=== PATIENT | male | born 1965 | race Native Hawaiian/Other Pacific Islander ===

== ENCOUNTER → 2020-01-06 13:44 | Outpatient (BNVA) | payer MEDICARE, MEDICAID, SELFPAY | PROVIDERS: PCP Hospitalist; Referring Provider Hospitalist; Visit Provider Physician Assistant | DX: S72.002D Fracture of unspecified part of neck of left femur, subsequent encounter for closed fracture with routine healing (principal) | CPT/HCPCS: 99212 ==

== ENCOUNTER 2020-01-28 13:23 | Outpatient (REF) | payer OTHER, MEDICARE, SELFPAY ==
--- NOTE | 2020-01-28 13:31 | MM_ITS ---
EXAMINATION: BONE DENSITOMETRY CLINICAL INDICATION: Recent hip fracture. COMPARISON: None (current study represents initial baseline exam). TECHNIQUE: Using a [employer] DXA System (software version: 13.1) manufactured by [employer], dual-energy x-ray absorptiometry was performed of the lumbar spine and right hip. The images are of good technical quality. Summary results are attached. FINDINGS: AP SPINE L1-L4: BMD 1.092 g/cm2, Z-score -1.3, T-score -1.1, osteopenia. RIGHT FEMUR, NECK: BMD 0.774 g/cm2, Z-score -1.8, T-score -2.3, osteopenia. RIGHT FEMUR, TOTAL: BMD 0.929 g/cm2, Z-score -1.1, T-score -1.2, osteopenia. IDENTIFIED RISK FACTORS: History of fracture (adult). HISTORY OF FRACTURE: Hip, trauma, 2020. MEDICATIONS: Calcium supplements or multivitamin, vitamin D. MM/XR DEXA axial skeleton IMPRESSION: 1. DIAGNOSIS: Osteopenia based on the lowest T-score value of -2.3 in the femoral neck applying World Health Organization criteria. 2. 10-YEAR FRACTURE RISK PREDICTION, FRAX: Major osteoporotic fracture (clinical spine, forearm, hip or shoulder) 6.2%. Hip fracture 1.2%. 3. Treatment Recommendations: NOF guidelines recommend consideration for treatment in postmenopausal women and men age 50 and older presenting with the following: -A hip or vertebral (clinical or morphometric) fracture. -T-score less than or equal to -2.5 at the femoral neck or spine after appropriate evaluation to exclude secondary causes. -Low bone mass at the hip or spine and a 10-year fracture probability by FRAX of greater than or equal to 3% for hip fracture or greater than or equal to 20% for major osteoporotic fracture based on the [place] adapted WHO algorithm. 4. Other Recommendations: All treatment decisions require clinical judgment and consideration of individual patient factors, including patient preferences, comorbidities, previous drug use, risk factors not captured in the FRAX model (e.g. frailty, falls, vitamin D deficiency, increased bone turnover, interval significant decline in bone density) and possible under or overestimation of fracture risk by FRAX. Additional medical evaluation for secondary cause of low bone mineral density may be appropriate. FUTURE SCAN RECOMMENDATION: People with diagnosed cases of osteoporosis or at high risk for fracture should have regular bone mineral density tests. For patients eligible for Medicare, routine testing is allowed once every 2 years. The testing frequency can be increased to one year for patients who have rapidly progressing disease, those who are receiving or discontinuing medical therapy to restore bone mass, or have additional risk factors.
== END 2020-01-28 13:24 | disposition home or self-care (01) ==
LOC: HO.MAMMO 13:23
PROVIDERS: PCP Hospitalist; Visit Provider Hospitalist
DX: Z13.820 Encounter for screening for osteoporosis (principal); Z87.81 Personal history of (healed) traumatic fracture; Z79.899 Other long term (current) drug therapy
CPT/HCPCS: 77080

== ENCOUNTER → 2020-05-18 09:39 | Outpatient (BNVA) | payer OTHER, MEDICAID, MEDICARE, SELFPAY | PROVIDERS: PCP Hospitalist; Visit Provider Urology | DX: N40.1 Benign prostatic hyperplasia with lower urinary tract symptoms (principal); N13.8 Other obstructive and reflux uropathy; R39.12 Poor urinary stream | CPT/HCPCS: 99202 ==

== ENCOUNTER 2020-06-05 07:31 | Emergency (ER) | payer MEDICARE, MEDICAID, SELFPAY ==
[2020-06-05 07:34] VITALS: BP 104/63; BP 80/40; PULSE 50; RESP 17; TEMP 36.6; O2SAT 98; O2SAT 99; BMI 25.1
--- NOTE | 2020-06-05 08:01 | ECG_ITS ---
Test Reason : SYNCOPE Blood Pressure : / mmHG Vent. Rate : 050 BPM Atrial Rate : 050 BPM P-R Int : 164 ms QRS Dur : 080 ms QT Int : 442 ms P-R-T Axes : 035 035 029 degrees QTc Int : 402 ms Sinus bradycardia Otherwise normal ECG When compared with ECG of 20-DEC-2019 07:47, No significant change was found Referred By: Kennedi Courtney Electronically Signed By:Desmond Sifuentes
--- NOTE | 2020-06-05 08:03 | ED.SYNCOPE ---
HPI - Syncope General Chief Complaint: Syncope Stated Complaint: syncope, from [facility] Time Seen by Provider: 06/05/20 07:37 Source: EMS Mode of arrival: EMS Limitations: other History of Present Illness HPI narrative: Patient comes to the emergency room by EMS. Earlier this morning, staff from [facility] found the patient sitting in the toilet, seems that he had a syncopal episode while trying to have a bowel movement. The staff reports that there was not a fall, they report that the patient is at his baseline mental status which is nonverbal, nods and answers simple questions. Patient denies headache, no chest pain, no shortness of breath, no abdominal pain, no pain in extremities, hips. Related Data Home Medications Medication Instructions Recorded Confirmed bisacodyl 10 mg FL DAILY 12/23/19 12/23/19 bisacodyl 10 mg FL DAILY PRN 12/23/19 12/23/19 calcium carbonate [Tums E-X] 500 mg PO Q6H PRN 12/23/19 12/23/19 cetirizine 10 mg PO DAILY 12/23/19 12/23/19 cholecalciferol (vitamin D3) 125 mcg PO DAILY 12/23/19 12/23/19 levothyroxine 50 mcg PO DAILY 12/23/19 12/23/19 melatonin 3 mg PO BEDTIME 12/23/19 12/23/19 multivitamin 1 cap PO DAILY 12/23/19 12/23/19 pantoprazole 40 mg PO DAILY@0630 12/23/19 12/23/19 polyethylene glycol 3350 [Miralax] 17 g PO DAILY PRN 12/23/19 12/23/19 sennosides [senna] 8.6 mg PO BEDTIME 12/23/19 12/23/19 sertraline 50 mg PO DAILY 12/23/19 12/23/19 simethicone 80 mg PO Q6H PRN 12/23/19 12/23/19 tamsulosin 0.4 mg PO DAILY@1730 12/23/19 12/23/19 acetaminophen 325 mg capsule 325 mg PO QID PRN 01/06/20 calcium carbonate 500 mg calcium 500 mg PO DAILY 01/06/20 (1,250 mg) chewable tablet cetirizine 10 mg tablet 10 mg PO DAILY 01/06/20 oxycodone 5 mg capsule 5 mg PO BID PRN 01/06/20 Previous Rx's Medication Instructions Recorded finasteride 5 mg tablet 5 mg PO DAILY 90 Days #90 tab 05/18/20 terazosin 5 mg capsule 5 mg PO BEDTIME 90 Days #90 cap 05/18/20 Allergies Allergy/AdvReac Type Severity Reaction Status Date / Time mirtazapine [MIRTAZAPINE] Allergy Unknown UNKNOWN Verified 05/18/20 10:04 Penicillins [PENICILLINS] Allergy Unknown UNKNOWN Verified 05/18/20 10:04 Review of Systems Review of Systems: Constitutional : No fever, no chills ENT/Mouth : No Hearing loss, No Ear Pain, No Nasal Congestion, No Sinus Pain, No Hoarseness, No sore throat, No Rhinorrhea, No Swallowing Difficulty Eyes: No Eye Pain, No Swelling, No Red no palpitations Respiratory : No Cough, No Sputum, No Wheezing, No Smoke Exposure, No Dyspnea Gastrointestinal : No Nausea, No Vomiting, No Diarrhea, No Constipation, No abdominal Pain, No Hematochezia, No Melena Genitourinary : No dysuria Musculoskeletal : No joint pain, No Joint Swelling Skin : No Skin Lesions, No rash Neuro : No Weakness, No Numbness, No Paresthesias, per staff patient may had had a near syncopal versus syncopal episode Psych : No Anxiety/Panic, No Depression, Heme/Lymph: No Bruising, No Bleeding,No Lymphadenopathy Endocrine : No Polyuria, No Polydipsia, No Temperature Intolerance PMFSH Past Medical History 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 No acute distress. Eyes: Pupils equal, round and reactive to light. ENT: Pharynx normal. Neck: Normal inspection. Neck supple. No lymph nodes noted. No crepitus CVS: Normal heart rate and rhythm. Pulses normal. Normal S1 and S2 Respiratory: No respiratory distress. Breath sounds normal. No Wheezing. No rales Abdomen: Soft and nontender. No rigidity. No distention. Skin: Skin warm and dry. Normal skin color. No lacerations, no abrasions Extremities: No lower extremity edema. No Lacerations. No Rash Neuro: Cranial nerves 2-12 grossly intact Course Course Course Narrative: Patient has remained asymptomatic, knots that he feels well, denies any chest pain. Patient's orthostatics negative (unable to stand), troponin negative, EKG shows bradycardia but patient is not on any beta blockers. Patient likely had a vasovagal near-syncope/syncopal episode while he was straining in the bathroom. MDM - Syncope Lab Data Result diagrams: 06/05/20 08:54 06/05/20 08:54 Labs: Lab Results 06/05/20 06/05/20 06/05/20 Range/Units 08:54 08:54 08:54 WBC 7.7 (4.8-10.8) X10*3/uL RBC 4.95 (4.60-5.80) X10*6/uL Hgb 13.4 L (14.0-18.0) g/dl Hct 40.9 L (42-52) % MCV 82.6 (80-98) fL MCH 27.1 (27.0-33.0) pg MCHC 32.8 (31.0-36.0) g/dl RDW 12.9 (11.0-16.0) % Plt Count 196 (160-400) X10*3/uL MPV 9.8 (9.4-12.4) fL Immature Gran % (Auto) 0.3 (0.0-0.4) % Neut % (Auto) 76.1 H (45-73) % Lymph % (Auto) 16.0 L (20-40) % Bee % (Auto) 4.8 (2-11) % Eos % (Auto) 1.9 (0-4) % Baso % (Auto) 0.9 (0-2) % Lymph # (Auto) 1.2 (1.2-4.9) X10*3/uL Bee # (Auto) 0.4 (0.1-1.2) X10*3/uL Eos # (Auto) 0.2 (0.0-0.4) X10*3/uL Baso # (Auto) 0.1 (0.0-0.2) X10*3/uL Abs Immat Gran (auto) 0.02 (0.00-0.03) X10*3/uL Absolute Neuts (auto) 5.9 (2.0-8.3) X10*3/uL Absolute Nucleated RBC 0.000 (0.0-0.012) X10*3/uL Nucleated RBC % (auto) 0.0 (0.0-0.2) /100WBC Sodium 142 (135-145) mmol/L Potassium 3.9 (3.3-5.1) mmol/L Chloride 108 (96-108) mmol/L Carbon Dioxide 27 (22-29) mmol/L Anion Gap 11 L (12-20) BUN 17 H (9-16) mg/dL Creatinine 0.93 (0.5-1.4) mg/dL Estim Creat Clear Calc 87.8 Estimated GFR > 60 Random Glucose 97 (60-115) mg/dL Calcium 8.3 L (8.4-10.2) mg/dL Total Bilirubin 0.6 (0.0-1.0) mg/dL Direct Bilirubin 0.2 (0.0-0.5) mg/dL AST 15 (5-37) U/L ALT 17 (0-40) U/L Alkaline Phosphatase 59 (39-117) U/L Troponin I High Sens < 3.5 (<3.5-35.0) ng/L Total Protein 6.3 L (6.5-8.0) g/dL Albumin 3.9 (3.5-5.0) g/dL ECG Data Attestation: I personally reviewed and interpreted this ECG as follows: (Sinus rhythm, heart rate 50, QTC 402, no ST segment depression or elevations, no T-wave inversions) Discharge Plan Discharge Clinical Impression: Vasovagal syncope Patient Disposition: Xfer [facility] Transfer Details: [facility] Instructions: Syncope (ED) Additional Instructions: Please follow-up with your primary care physician tomorrow. If you have any worsening or new symptoms, please return to the emergency room or call 911 Prescriptions: No Action sennosides [senna] 8.6 mg Tablet 8.6 mg PO BEDTIME RF: 0 polyethylene glycol 3350 [Miralax] 17 gram Powder In Packet 17 g PO DAILY PRN (Reason: Constipation) RF: 0 cetirizine 10 mg Tablet 10 mg PO DAILY RF: 0 calcium carbonate [Tums E-X] 300 mg (750 mg) Tablet,Chewable 500 mg PO Q6H PRN (Reason: GI UPSET) RF: 0 tamsulosin 0.4 mg capsule 0.4 mg PO DAILY@1730 RF: 0 levothyroxine 50 mcg tablet 50 mcg PO DAILY RF: 0 bisacodyl 10 mg Suppository 10 mg FL DAILY RF: 0 bisacodyl 10 mg Suppository 10 mg FL DAILY PRN (Reason: Constipation) RF: 0 pantoprazole 40 mg tablet,delayed release (DR/EC) 40 mg PO DAILY@0630 RF: 0 multivitamin Capsule 1 cap PO DAILY RF: 0 sertraline 50 mg tablet 50 mg PO DAILY RF: 0 simethicone 80 mg Tablet,Chewable 80 mg PO Q6H PRN (Reason: Constipation) RF: 0 cholecalciferol (vitamin D3) 25 mcg (1,000 unit) Tablet 125 mcg PO DAILY RF: 0 melatonin 3 mg Capsule 3 mg PO BEDTIME RF: 0 acetaminophen 325 mg capsule 325 mg PO QID PRNRF: 0 cetirizine 10 mg tablet 10 mg PO DAILY RF: 0 oxycodone 5 mg capsule 5 mg PO BID PRNRF: 0 calcium carbonate 500 mg calcium (1,250 mg) tablet,chewable 500 mg PO DAILY RF: 0 terazosin 5 mg capsule 5 mg PO BEDTIME 90 Days Qty: 90 RF: 3 finasteride 5 mg tablet 5 mg PO DAILY 90 Days Qty: 90 RF: 1
[2020-06-05 08:59] LABS: MANUAL DIFF FLAG NO
[2020-06-05 09:02] LABS: Basophils Absolute Auto 0.1 X10*3/uL (0.0-0.2); Basophils Percent Auto 0.9 % (0-2); Eosinophils Absolute Auto 0.2 X10*3/uL (0.0-0.4); Eosinophils Percent Auto 1.9 % (0-4); Hematocrit 40.9 % (42-52); Hemoglobin 13.4 g/dl (14.0-18.0); Imm Gran Abs Auto 0.02 X10*3/uL (0.00-0.03); Imm Gran Pct Auto 0.3 % (0.0-0.4); Lymphocytes Absolute Auto 1.2 X10*3/uL (1.2-4.9); Mean Corpuscular HGB Conc 32.8 g/dl (31.0-36.0); Mean Corpuscular Hemoglobin 27.1 pg (27.0-33.0); Mean Corpuscular Volume 82.6 fL (80-98); Mean Platelet Volume 9.8 fL (9.4-12.4); Monocytes Absolute Auto 0.4 X10*3/uL (0.1-1.2); Monocytes Percent Auto 4.8 % (2-11); Neutrophils Absolute Auto 5.9 X10*3/uL (2.0-8.3); Neutrophils Percent Auto 76.1 % (45-73); Platelet Count 196 X10*3/uL (160-400); Red Blood Count 4.95 X10*6/uL (4.60-5.80); Red Cell Distribution Width 12.9 % (11.0-16.0); White Blood Count 7.7 X10*3/uL (4.8-10.8)
[2020-06-05 09:26] LABS: Alanine Aminotransferase 17 U/L (0-40); Albumin Level 3.9 g/dL (3.5-5.0); Alkaline Phosphatase 59 U/L (39-117); Anion Gap 11 (12-20); Aspartate Amino Transferase 15 U/L (5-37); Bilirubin Direct 0.2 mg/dL (0.0-0.5); Bilirubin Total 0.6 mg/dL (0.0-1.0); Blood Urea Nitrogen 17 mg/dL (9-16); Calcium 8.3 mg/dL (8.4-10.2); Carbon Dioxide 27 mmol/L (22-29); Chloride 108 mmol/L (96-108); Creatinine Clr Calc Pharmacy 87.8; Estimated Glomerular Filt Rate > 60; Glucose Random 97 mg/dL (60-115); Potassium 3.9 mmol/L (3.3-5.1); Sodium 142 mmol/L (135-145); Total Protein 6.3 g/dL (6.5-8.0)
[2020-06-05 09:29] LABS: Troponin-I High Sensitivity < 3.5 ng/L (<3.5-35.0)
[2020-06-05 09:53] VITALS: BP 121/61; PULSE 62
[2020-06-05 09:54] VITALS: BP 118/59; PULSE 67
== END 2020-06-05 11:50 | disposition skilled nursing facility (03) ==
PROVIDERS: Emergency Provider Emergency Medicine; PCP Hospitalist
DX: R55 Syncope and collapse (principal); Z86.16 Personal history of COVID-19; Z79.899 Other long term (current) drug therapy
CPT/HCPCS: 36415; 80048; 80076; 84484; 85025; 93005; 99283

== ENCOUNTER 2020-11-18 13:44 | Emergency (ER) | payer MEDICARE, MEDICAID, SELFPAY ==
--- NOTE | ~2020-11-18 | CT_ITS ---
EXAMINATION: CT HEAD WITHOUT CONTRAST CLINICAL INFORMATION: Altered mental status. COMPARISON: CT had noncontrast 12/20/2019 TECHNIQUE: Contiguous axial imaging was performed from the skull base to vertex without intravenous administration of contrast. Additional 2-D coronal and sagittal reformatted images are generated on the CT workstation and uploaded to PACS. Images are repeated due to motion. This CT examination was performed using dose optimization techniques as appropriate, variously including the following: *Automated exposure control *Adjustment of mA and/or kV according to patient size (this includes techniques or standardized protocols for targeted exams where dose is matched to indication/reason for exam; i.e. extremities or head) *Use of iterative reconstruction technique DLP: 1069 mGy-cm FINDINGS: There is no intracranial hemorrhage, hematoma, or extra-axial fluid collection. The ventricles are normal in size. There is no hydrocephalus, edema, or mass effect. There are atrophic changes with prominence of the cortical sulci and fissures and cisterns again seen. There is mild fullness of the ventricles as before. No subependymoma resorption. Gliosis adjacent to the frontal horns and occipital regions is stable. The martinez-white matter differentiation is similar to prior exam. There is no visible acute territorial infarct or mass lesion. The calvarium appears intact. There is no pneumocephalus or orbital emphysema. The visualized sinuses and middle ears and mastoid air cells show no significant mucosal thickening. There are no air-fluid levels. There is probable small osteoma inferior lateral left mastoid, similar to prior exam. CT/CT head/brain wo con IMPRESSION: No acute intracranial abnormality.
--- NOTE | ~2020-11-18 | CT_ITS ---
EXAMINATION: CT ABDOMEN AND PELVIS WITHOUT CONTRAST CLINICAL INFORMATION: Abdominal pain COMPARISON: None TECHNIQUE: Multidetector volumetric imaging was performed from the superior aspect of the liver through the pubic symphysis. Sagittal and coronal reformatted images were obtained on the technologist's workstation. This CT examination was performed using dose optimization techniques as appropriate, variously including the following: *Automated exposure control *Adjustment of mA and/or kV according to patient size (this includes techniques or standardized protocols for targeted exams where dose is matched to indication/reason for exam; i.e. extremities or head) *Use of iterative reconstruction technique DLP: 742 mGy-cm FINDINGS: There is motion artifact present about the abdomen and pelvis. LUNG BASES: The visualized lung bases are unremarkable. There is a small anterior right-sided pericardial effusion. No pleural effusion. LIVER, GALLBLADDER, AND BILIARY TREE: The liver is normal in size, shape, and attenuation. No focal hepatic lesion or biliary ductal dilatation is present. The gallbladder is unremarkable with no evidence of radiopaque gallstones, gallbladder wall thickening, or obvious pericholecystic inflammatory changes. PANCREAS: Unremarkable. SPLEEN: Unremarkable. ADRENAL GLANDS: Unremarkable. KIDNEYS AND URETERS: The kidneys are normal in size, shape, and attenuation. No hydronephrosis, hydroureter, or renal calculi seen. No perinephric stranding. There is some linear calcification seen about the right posterior wall of the urinary bladder but without secondary signs of obstructive uropathy and likely not in the ureter. BLADDER: The bladder is decompressed. Bladder wall thickening is seen which may be related to its collapsed state however with the calcifications appear to lie in the bladder wall is may be related to some chronic process and possibly related to calculi within a small diverticulum. The calcifications are in the vicinity of the ureterovesical junction. GASTROINTESTINAL TRACT: No dilated loops of large or small bowel are evident. No free intra-abdominal air is seen. No pneumatosis intestinalis. There is trace free fluid seen within the pelvis. There is a lack of intra-abdominal fat pelvis with multiple loops of stool-filled bowel making it difficult differentiating loops of bowel however no definite pericolonic inflammatory change is identified and no suspicious abscess fluid collection is seen. The appendix is not identified. ABDOMINAL WALL: No significant hernia is appreciated. LYMPH NODES: No lymphadenopathy appreciated. VASCULAR: No abdominal aortic aneurysm identified. PELVIC VISCERA: No definite abnormal mass can be out from the seminal vessels, colon, prostate gland, and bladder. OSSEOUS STRUCTURES: There is osteopenia visualized bones. Status post right hip compression screw placement. There are bilateral L5 pars defects present. There is grade 1 spondylolisthesis L5-S1. There is loss of the disc spaces at the L4-5 and L5-S1 levels. There is some irregularity about the superior endplate of L5. CT/CT abdomen pelvis wo con IMPRESSION: No evidence of ileus or obstruction. Small pericardial effusion. No definite obstructive uropathy. Calcification about the right side of the urinary bladder with thick walled urinary bladder. Appendix not identified. Osteopenia with bilateral L5 pars defects and grade 1 spondylolisthesis L5-S1. Disc space narrowing L4-5 and L5-S1.
--- NOTE | ~2020-11-18 | XR_ITS ---
EXAMINATION: XR CHEST CLINICAL INFORMATION: Weakness COMPARISON: None TECHNIQUE: Portable upright AP view of the chest was obtained. FINDINGS: Patient is rotated to the right. The lungs are clear. The vascularity is normal. There is no airspace consolidation or groundglass opacity. No pneumothorax or pleural reaction or effusion. The heart is normal in size. The vascularity is normal. No visible acute bony abnormality. XR/XR chest 1V IMPRESSION: Unremarkable examination.
--- NOTE | 2020-11-18 13:47 | ED.AMS ---
HPI - Altered Mental Status General Chief Complaint: General Medical Stated Complaint: increased ams Time Seen by Provider: 11/18/20 13:49 Source: EMS and old records reviewed Mode of arrival: EMS Limitations: altered mental status History of Present Illness MD complaint: altered mental status, decreased responsiveness and other (poor PO intake, possible abdominal pain) Onset (ago): week(s) (1) Timing confirmed by: caregiver Severity: moderate Consistency of symptoms: getting Worse Associated symptoms: loss of appetite and malaise Related Data Home Medications Medication Instructions Recorded Confirmed bisacodyl 10 mg rectal suppository 10 mg NV DAILY 12/23/19 11/18/20 cetirizine 10 mg tablet 10 mg PO DAILY 12/23/19 11/18/20 cholecalciferol (vitamin D3) 25 125 mcg PO DAILY 12/23/19 11/18/20 mcg (1,000 unit) tablet pantoprazole 40 mg tablet,delayed 40 mg PO DAILY@0630 12/23/19 11/18/20 release sennosides 8.6 mg tablet (senna) 8.6 mg PO BEDTIME PRN 12/23/19 11/18/20 sertraline 50 mg tablet 50 mg PO DAILY 12/23/19 11/18/20 simethicone 80 mg chewable tablet 80 mg PO Q6H PRN 12/23/19 11/18/20 acetaminophen 325 mg capsule 650 mg PO Q6H PRN 01/06/20 11/18/20 calcium carbonate 500 mg calcium 500 mg PO DAILY 01/06/20 11/18/20 (1,250 mg) chewable tablet alendronate 70 mg tablet 70 mg PO WILLIAMSON 11/18/20 11/18/20 calcium carbonate 600 mg calcium 600 mg PO DAILY 11/18/20 11/18/20 (1,500 mg) tablet ibuprofen 600 mg tablet 600 mg PO TID 11/18/20 11/18/20 ibuprofen 800 mg tablet 800 mg PO Q8H PRN 11/18/20 11/18/20 lactulose 10 gram/15 mL oral 15 ml PO DAILY 11/18/20 11/18/20 solution levothyroxine 25 mcg tablet 25 mcg PO DAILY 11/18/20 11/18/20 multivitamin with minerals 1 tab PO DAILY 11/18/20 11/18/20 potassium chloride 10 mEq 20 meq PO DAILY 11/18/20 11/18/20 tablet,extended release Previous Rx's Medication Instructions Recorded finasteride 5 mg tablet 5 mg PO DAILY 90 Days #90 tab 05/18/20 terazosin 5 mg capsule 5 mg PO BEDTIME 90 Days #90 cap 05/18/20 Allergies Allergy/AdvReac Type Severity Reaction Status Date / Time mirtazapine [MIRTAZAPINE] Allergy Unknown UNKNOWN Verified 05/18/20 10:04 Penicillins [PENICILLINS] Allergy Unknown UNKNOWN Verified 05/18/20 10:04 Review of Systems Review of Systems: ROS unable to be obtained due to altered mental status [facility] Past Medical History Attestation statement: The following information was validated with the patient. 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 Hypothyroid Mild cognitive impairment, so stated Mood disorder due to known physiological condition with depressive features Muscle weakness (generalized) Osteoarthritis Other lack of coordination Unsteadiness on feet Social History Social History (Updated 11/18/20 @ 14:03 by Apoorva Garcia DO) Patient Tobacco Use Status: Tobacco use Unknown Advance Directives: Yes Advance Directives on File: Yes Advance Directives Date on File: 11/18/20 Physical Exam Vital Signs: Vital Signs: Last Vital Signs Temp 98.5 F 11/18/20 16:32 Pulse 84 11/18/20 16:32 Resp 20 11/18/20 16:32 BP 110/87 11/18/20 16:32 Pulse Ox 99 11/18/20 16:32 Body Mass Index 23.1 Appearance: Somnolent, mild acute distress Eyes: Pupils equal, round and reactive to light. ENT: Pharynx moderately dry Neck: Normal inspection. Neck supple. CVS: Normal heart rate and rhythm. Pulses normal. Respiratory: No respiratory distress. Breath sounds normal. Abdomen: Soft grimaces to palpation Skin: Skin warm and dry. Normal skin color. poor skin turgor. Extremities: No lower extremity edema. Neuro: Cannot participate in exam, pulling limbs away during exam Course Course Course Narrative: overall no acute findings on CT scan, he is FTT and dehydration but negative CT head/cxr/abd for infection no UTI hydrated given thick walled bladder IV rocephin can follow up with urology MDM - Altered Mental Status MDM Narrative Medical decision making narrative: 55 yo male from SNF undifferentiated AMS for 1 week with poor PO intake - at this time labs, IVF, CT scan abdomen to look for infection/obstruction, UA, CXR for pneumonia, CT head for ICH - dispo per results and findings. Lab Data Result diagrams: 11/18/20 14:26 11/18/20 14:26 Labs: Lab Results 11/18/20 11/18/20 11/18/20 Range/Units 14:25 14:26 14:26 WBC 5.6 (4.8-10.8) X10*3/uL RBC 4.85 (4.60-5.80) X10*6/uL Hgb 13.1 L (14.0-18.0) g/dl Hct 38.7 L (42-52) % MCV 79.8 L (80-98) fL MCH 27.0 (27.0-33.0) pg MCHC 33.9 (31.0-36.0) g/dl RDW 12.9 (11.0-16.0) % Plt Count 220 (160-400) X10*3/uL MPV 10.2 (9.4-12.4) fL Immature Gran % (Auto) 0.4 (0.0-0.4) % Neut % (Auto) 62.6 (45-73) % Lymph % (Auto) 25.2 (20-40) % Robertson % (Auto) 6.3 (2-11) % Eos % (Auto) 4.6 H (0-4) % Baso % (Auto) 0.9 (0-2) % Lymph # (Auto) 1.4 (1.2-4.9) X10*3/uL Robertson # (Auto) 0.4 (0.1-1.2) X10*3/uL Eos # (Auto) 0.3 (0.0-0.4) X10*3/uL Baso # (Auto) 0.1 (0.0-0.2) X10*3/uL Abs Immat Gran (auto) 0.02 (0.00-0.03) X10*3/uL Absolute Neuts (auto) 3.5 (2.0-8.3) X10*3/uL Absolute Nucleated RBC 0.000 (0.0-0.012) X10*3/uL Nucleated RBC % (auto) 0.0 (0.0-0.2) /100WBC Sodium 143 (135-145) mmol/L Potassium 3.1 L D (3.3-5.1) mmol/L Chloride 107 (96-108) mmol/L Carbon Dioxide 23 (22-29) mmol/L Anion Gap 16 (12-20) BUN 18 H (9-16) mg/dL Creatinine 0.90 (0.5-1.4) mg/dL Estim Creat Clear Calc 90.7 Estimated GFR > 60 Random Glucose 86 (60-115) mg/dL Lactic Acid 1.0 (0.5-2.0) mmol/L Calcium 8.8 D (8.4-10.2) mg/dL Magnesium 2.0 (1.6-2.6) mg/dL Total Bilirubin 1.1 H (0.0-1.0) mg/dL Direct Bilirubin 0.4 (0.0-0.5) mg/dL AST 20 (5-37) U/L ALT 15 (0-40) U/L Alkaline Phosphatase 53 (39-117) U/L Troponin I High Sens (<3.5-35.0) ng/L Total Protein 6.4 L (6.5-8.0) g/dL Albumin 4.0 (3.5-5.0) g/dL Lipase 20 (8-78) U/L Urine Color Urine Appearance Urine pH (5.0-8.0) Ur Specific [place] (1.005-1.025) Urine Protein (NEG-TRACE) MG/DL Urine Glucose (UA) (NEG) MG/DL Urine Ketones (NEG) MG/DL Urine Blood (NEG) Urine Nitrite (NEG) Ur Leukocyte Esterase (NEG) Urine RBC (0) /HPF Urine WBC (0-4) /HPF Ur Squamous Epith Cells /LPF Tyrosine Crystals /LPF Amorphous Sediment /LPF Urine Bacteria /LPF Other Casts /LPF Urine Mucus /LPF COVID-19 (KEITH) (Negative) COVID-19 Clin Com 11/18/20 11/18/20 11/18/20 Range/Units 14:26 14:26 14:44 WBC (4.8-10.8) X10*3/uL RBC (4.60-5.80) X10*6/uL Hgb (14.0-18.0) g/dl Hct (42-52) % MCV (80-98) fL MCH (27.0-33.0) pg MCHC (31.0-36.0) g/dl RDW (11.0-16.0) % Plt Count (160-400) X10*3/uL MPV (9.4-12.4) fL Immature Gran % (Auto) (0.0-0.4) % Neut % (Auto) (45-73) % Lymph % (Auto) (20-40) % Robertson % (Auto) (2-11) % Eos % (Auto) (0-4) % Baso % (Auto) (0-2) % Lymph # (Auto) (1.2-4.9) X10*3/uL Robertson # (Auto) (0.1-1.2) X10*3/uL Eos # (Auto) (0.0-0.4) X10*3/uL Baso # (Auto) (0.0-0.2) X10*3/uL Abs Immat Gran (auto) (0.00-0.03) X10*3/uL Absolute Neuts (auto) (2.0-8.3) X10*3/uL Absolute Nucleated RBC (0.0-0.012) X10*3/uL Nucleated RBC % (auto) (0.0-0.2) /100WBC Sodium (135-145) mmol/L Potassium (3.3-5.1) mmol/L Chloride (96-108) mmol/L Carbon Dioxide (22-29) mmol/L Anion Gap (12-20) BUN (9-16) mg/dL Creatinine (0.5-1.4) mg/dL Estim Creat Clear Calc Estimated GFR Random Glucose (60-115) mg/dL Lactic Acid (0.5-2.0) mmol/L Calcium (8.4-10.2) mg/dL Magnesium (1.6-2.6) mg/dL Total Bilirubin (0.0-1.0) mg/dL Direct Bilirubin (0.0-0.5) mg/dL AST (5-37) U/L ALT (0-40) U/L Alkaline Phosphatase (39-117) U/L Troponin I High Sens 4.2 (<3.5-35.0) ng/L Total Protein (6.5-8.0) g/dL Albumin (3.5-5.0) g/dL Lipase (8-78) U/L Urine Color YELLOW Urine Appearance CLEAR Urine pH 6.0 (5.0-8.0) Ur Specific [place] >= 1.030 H (1.005-1.025) Urine Protein 1+ H (NEG-TRACE) MG/DL Urine Glucose (UA) NEG (NEG) MG/DL Urine Ketones 40 (NEG) MG/DL Urine Blood NEG (NEG) Urine Nitrite NEG (NEG) Ur Leukocyte Esterase NEG (NEG) Urine RBC 0 (0) /HPF Urine WBC 0 (0-4) /HPF Ur Squamous Epith Cells TRACE /LPF Tyrosine Crystals TRACE /LPF Amorphous Sediment TRACE /LPF Urine Bacteria TRACE /LPF Other Casts 0-2 /LPF Urine Mucus 4+ /LPF COVID-19 (KEITH) Negative (Negative) COVID-19 Clin Com See Note ECG Data ECG #1: Attestation: I personally reviewed and interpreted this ECG as follows: ECG interpretation date: 11/18/20 ECG interpretation time: 14:46 Interpretation: Rate: 82 Rhythm: NSR [place]: normal Normal P waves. Normal NEMESIO. Normal QRS complex. ST T wave : nonspecific, no JORDAN qTC: normal prior studies: no acute ischemia The study has been interpreted contemporaneously by me. . Discharge Plan Discharge Clinical Impression: Weakness, Acute dehydration Patient Disposition: Xfer SNF Instructions: Dehydration (ED), Failure to Thrive (ED) Additional Instructions: return to ED for any worsening symptoms or concerns CT head, CT abdomen and pelvis negative for acute pathology Urine negative for infection Chest xray negative for pneumonia CT abdomen did show: No definite obstructive uropathy. Calcification about the right side of the urinary bladder with thick walled urinary bladder. NEEDS TO SEE UROLOGIST OUTPATIENT PLACE ON CEFTIN 250MG BID FOR 7 DAYS Prescriptions: No Action sennosides [senna] 8.6 mg Tablet 8.6 mg PO BEDTIME PRN (Reason: Constipation) RF: 0 cetirizine 10 mg Tablet 10 mg PO DAILY RF: 0 bisacodyl 10 mg Suppository 10 mg NV DAILY RF: 0 pantoprazole 40 mg tablet,delayed release (DR/EC) 40 mg PO DAILY@0630 RF: 0 sertraline 50 mg tablet 50 mg PO DAILY RF: 0 simethicone 80 mg Tablet,Chewable 80 mg PO Q6H PRN (Reason: Constipation) RF: 0 cholecalciferol (vitamin D3) 25 mcg (1,000 unit) Tablet 125 mcg PO DAILY RF: 0 ibuprofen 800 mg Tablet 800 mg PO Q8H PRN (Reason: Pain) RF: 0 alendronate 70 mg Tablet 70 mg PO WILLIAMSON RF: 0 potassium chloride 10 mEq Tablet Extended Release 20 meq PO DAILY RF: 0 levothyroxine 25 mcg Tablet 25 mcg PO DAILY RF: 0 calcium carbonate 600 mg calcium (1,500 mg) Tablet 600 mg PO DAILY RF: 0 ibuprofen 600 mg Tablet 600 mg PO TID RF: 0 multivitamin with minerals Tablet 1 tab PO DAILY RF: 0 lactulose 10 gram/15 mL Solution 15 ml PO DAILY RF: 0 acetaminophen 325 mg capsule 650 mg PO Q6H PRN (Reason: PAIN/FEVER) RF: 0 calcium carbonate 500 mg calcium (1,250 mg) tablet,chewable 500 mg PO DAILY RF: 0 terazosin 5 mg capsule 5 mg PO BEDTIME 90 Days Qty: 90 RF: 3 finasteride 5 mg tablet 5 mg PO DAILY 90 Days Qty: 90 RF: 1 Referrals: Hector Amos DO [Primary Care Provider] - 2 days
[2020-11-18 13:48] VITALS: BP 112/79; PULSE 90; RESP 18; TEMP 36.8; O2SAT 99; BMI 23.1
--- NOTE | 2020-11-18 13:50 | ECG_ITS ---
Test Reason : GENERAL MEDICINE Blood Pressure : / mmHG Vent. Rate : 082 BPM Atrial Rate : 082 BPM P-R Int : 150 ms QRS Dur : 080 ms QT Int : 404 ms P-R-T Axes : 067 021 042 degrees QTc Int : 472 ms Normal sinus rhythm Normal ECG When compared with ECG of 05-JUN-2020 06:37, Vent. rate has increased BY 32 BPM QT has lengthened Referred By: Apoorva Garcia Electronically Signed By:LY LOVING
[2020-11-18] MEDS: ondansetron HCL 4 MG/2 ML VIAL IVPUSH (14:19)
[2020-11-18] MEDS: 0.9 % Sodium Chloride 1,000 ML 999 ML IVCONT ×2 (14:19→15:39)
[2020-11-18 14:34] LABS: MANUAL DIFF FLAG NO
[2020-11-18 14:44] LABS: Basophils Absolute Auto 0.1 X10*3/uL (0.0-0.2); Basophils Percent Auto 0.9 % (0-2); Eosinophils Absolute Auto 0.3 X10*3/uL (0.0-0.4); Eosinophils Percent Auto 4.6 % (0-4); Hematocrit 38.7 % (42-52); Hemoglobin 13.1 g/dl (14.0-18.0); Imm Gran Abs Auto 0.02 X10*3/uL (0.00-0.03); Imm Gran Pct Auto 0.4 % (0.0-0.4); Lymphocytes Absolute Auto 1.4 X10*3/uL (1.2-4.9); Lymphocytes Percent Auto 25.2 % (20-40); Mean Corpuscular HGB Conc 33.9 g/dl (31.0-36.0); Mean Corpuscular Volume 79.8 fL (80-98); Mean Platelet Volume 10.2 fL (9.4-12.4); Monocytes Absolute Auto 0.4 X10*3/uL (0.1-1.2); Monocytes Percent Auto 6.3 % (2-11); Neutrophils Absolute Auto 3.5 X10*3/uL (2.0-8.3); Neutrophils Percent Auto 62.6 % (45-73); Platelet Count 220 X10*3/uL (160-400); Red Blood Count 4.85 X10*6/uL (4.60-5.80); Red Cell Distribution Width 12.9 % (11.0-16.0); White Blood Count 5.6 X10*3/uL (4.8-10.8)
--- NOTE | 2020-11-18 14:50 | PHA.MEDREC ---
Pharmacy Consult ? Medication Reconciliation Pharmacy has completed the medication reconciliation. There are no remarkable issues for provider's attention. Med list verified by [employer] med list. Kandice Noonan, TaniaD
[2020-11-18 14:52] LABS: COVID-19 Test Negative (Negative); IDNOW Serial# 55D5AD1C
[2020-11-18 14:53] LABS: Glucose Urine UA NEG (NEG); Leukocyte Esterase Urine NEG (NEG); Nitrite Urine NEG (NEG); Specific Gravity - Urine >= 1.030 (1.005-1.025); UACC Culture Trigger NO; Urine Blood NEG (NEG); Urine Ketones 40 MG/DL (NEG); Urine Protein 1+ MG/DL (NEG-TRACE)
[2020-11-18 14:55] LABS: Appearance Urine CLEAR; Color Urine YELLOW
[2020-11-18 15:05] LABS: Alanine Aminotransferase 15 U/L (0-40); Alkaline Phosphatase 53 U/L (39-117); Anion Gap 16 (12-20); Aspartate Amino Transferase 20 U/L (5-37); Bilirubin Direct 0.4 mg/dL (0.0-0.5); Bilirubin Total 1.1 mg/dL (0.0-1.0); Blood Urea Nitrogen 18 mg/dL (9-16); Calcium 8.8 mg/dL (8.4-10.2); Carbon Dioxide 23 mmol/L (22-29); Chloride 107 mmol/L (96-108); Creatinine Clr Calc Pharmacy 90.7; Estimated Glomerular Filt Rate > 60; Glucose Random 86 mg/dL (60-115); Lipase 20 U/L (8-78); Potassium 3.1 mmol/L (3.3-5.1); Sodium 143 mmol/L (135-145); Total Protein 6.4 g/dL (6.5-8.0)
[2020-11-18 15:06] LABS: Bacteria Urine TRACE /LPF; Mucus Urine 4+ /LPF; Other Casts Urine 0-2 /LPF; RBC Urine 0 /HPF (0); Squamous Epithelial Cell Urine TRACE /LPF; WBC Urine 0 /HPF (0-4)
[2020-11-18 15:07] LABS: Amorphous Sediment Urine TRACE /LPF; Tyrosine Crystal Urine TRACE /LPF
[2020-11-18 15:08] LABS: Troponin-I High Sensitivity 4.2 ng/L (<3.5-35.0)
[2020-11-18 15:40] VITALS: BP 123/75; PULSE 94; RESP 20; O2SAT 99
[2020-11-18 16:32] VITALS: BP 110/87; PULSE 84; RESP 20; TEMP 36.9; O2SAT 99
[2020-11-18] MEDS: cefTRIAXone sodium 1 GM in 0.9 % Sodium Chloride 50 ML IV (16:55)
== END 2020-11-18 17:45 | disposition skilled nursing facility (03) ==
PROVIDERS: Emergency Provider Emergency Medicine; PCP Hospitalist
DX: R53.1 Weakness (principal); E86.0 Dehydration; Z20.822 Contact with and (suspected) exposure to COVID-19; R62.7 Adult failure to thrive
CPT/HCPCS: 36415; 70450; 71045; 74176; 80048; 80076; 81001; 83605; 83690; 83735; 84484; 85025; 87040; 87635; 93005; 96361; 96365; 96375; 99284; J0696; J2405